=== PATIENT | female | born 1980 | race African-American/Black ===

== ENCOUNTER 2018-04-24 14:15 | Observation (INO) ==
[2018-04-24 15:29] LABS: Apearance,Urine CLEAR (Clear); Bilirubin,Urine Negative (Negative); Blood, Urine Negative (Negative); Glucose,Urine (UA) Negative (Negative); Ketones,Urine Negative (Negative); Mucus,Urine Few /LPF (Occasional); Nitrite,Urine Negative (Negative); Protein,Urine Negative; RBC,Urine <1 /HPF (0-4); Squamous Epithelial Cell,Urine Occasional /HPF (0-10); Urine Color Yellow (Yellow); Urine Specific Gravity 1.018 (1.001-1.035); Urine Urobilinogen < 2.0 EU/DL (0.2-1.0); WBC,Urine <1 /HPF (0-6)
[2018-04-24] MEDS ORDERED: PROMETHAZINE 25 MG/1 ML VIAL IM STA (15:30)
[2018-04-24] MEDS ORDERED: SODIUM CHLORIDE 0.9% 500 ML IV STA (15:30)
[2018-04-24] MEDS ORDERED: HYDROmorphone 2 MG/1 ML VIAL IV ONE (15:40)
[2018-04-24] MEDS ORDERED: PROMETHAZINE 25 MG/1 ML VIAL ONE ×2 (15:55→16:34)
[2018-04-24] MEDS ORDERED: HYDROmorphone 2 MG/1 ML VIAL ONE (15:55)
[2018-04-24 16:19] LABS: Basophils % 0.2 % (0.0-0.8); Eosinophils # 0.1 10*3/uL (0.0-0.87); Hematocrit 38.2 VOL% (35.7-47.0); Hemoglobin 12.4 GM/DL (12.0-16.0); Immature Granulocytes % 0.3 %; Immature Granulocytes Absolute 0.02 #; Lymphocytes # 2.3 10*3/uL (1.4-4.0); Lymphocytes % 39.1 % (21.3-54.2); Mean Corpuscular HGB Conc 32.5 GM/DL (32-36); Mean Corpuscular Hemoglobin 30 PG (27-34); Mean Platelet Volume 9.4 FL (9.6-12.0); Monocytes # 0.4 10*3/uL (0.11-0.8); Neutrophils # 3.1 10*3/uL (1.4-7.4); Neutrophils % 52.4 % (38.7-73.9); Platelet Count 240 T/CUMM (130-400); Red Blood Count 4.15 MC/CUMM (3.8-5.5); Red Cell Distribution Width 12.8 % (9.3-17.3); White Blood Count 5.9 T/CUMM (4-12)
[2018-04-24 16:48] LABS: Lactic Acid 1.5 MMOL/L (0.4-2.0)
[2018-04-24 16:49] LABS: Alanine Aminotransferase 17 U/L (13-56); Albumin 3.3 G/DL (3.4-5.0); Alkaline Phosphatase 73 U/L (45-117); Amylase 142 U/L (25-115); Aspartate Amino Transferase 12 U/L (0-37); Bilirubin,Total < 0.39 MG/DL (0.2-1.0); Blood Urea Nitrogen 11 MG/DL (7-18); Calcium 8.1 MG/DL (8.5-10.1); Glucose 87 MG/DL (74-106); Potassium 3.6 MMOL/L (3.5-5.1); Sodium 143 MMOL/L (136-145); Total Protein 6.8 G/DL (6.4-8.3)
[2018-04-24] MEDS ORDERED: KETOROLAC 30 MG/1 ML VIAL IV STA (19:15)
[2018-04-24] MEDS ORDERED: ACETAMINOPHEN 325 MG TABLET PO PRN (20:17)
[2018-04-24] MEDS: PROMETHAZINE 25 MG/1 ML VIAL IM PRN (20:30)
[2018-04-24] MEDS: KETOROLAC 30 MG/1 ML VIAL IV SCH (20:30)
[2018-04-24] MEDS: SODIUM CHLORIDE 0.9% 1,000 ML IV SCH (21:38)
[2018-04-25] MEDS: KETOROLAC 30 MG/1 ML VIAL IV SCH ×4 (02:39→20:06)
[2018-04-25] MEDS: HYDROmorphone 2 MG/1 ML VIAL IV PRN ×2 (02:57→20:08)
[2018-04-25] MEDS: PROMETHAZINE 25 MG/1 ML VIAL IM PRN ×4 (03:03→20:05)
[2018-04-25 03:53] LABS: Apearance,Urine CLEAR (Clear); Bilirubin,Urine Negative (Negative); Blood, Urine Negative (Negative); Glucose,Urine (UA) Negative (Negative); Ketones,Urine Negative (Negative); Mucus,Urine Few /LPF (Occasional); Nitrite,Urine Negative (Negative); Protein,Urine Negative; RBC,Urine 4 /HPF (0-4); Squamous Epithelial Cell,Urine Occasional /HPF (0-10); Urine Color Yellow (Yellow); Urine Specific Gravity > 1.060 (1.001-1.035); Urine Urobilinogen < 2.0 EU/DL (0.2-1.0); WBC,Urine 2 /HPF (0-6)
[2018-04-25] MEDS: SODIUM CHLORIDE 0.9% 1,000 ML IV SCH (05:49)
[2018-04-25 07:06] LABS: Basophils % 0.1 % (0.0-0.8); Eosinophils # 0.1 10*3/uL (0.0-0.87); Eosinophils % 1.3 % (0.00-10.9); Hematocrit 33.5 VOL% (35.7-47.0); Hemoglobin 11.3 GM/DL (12.0-16.0); Immature Granulocytes % 0.3 %; Immature Granulocytes Absolute 0.02 #; Lymphocytes # 2.5 10*3/uL (1.4-4.0); Lymphocytes % 35.8 % (21.3-54.2); Mean Corpuscular HGB Conc 33.7 GM/DL (32-36); Mean Corpuscular Hemoglobin 31 PG (27-34); Mean Corpuscular Volume 90.3 FL (87-102); Mean Platelet Volume 9.7 FL (9.6-12.0); Monocytes # 0.6 10*3/uL (0.11-0.8); Monocytes % 8.1 % (1.7-12.7); Neutrophils # 3.8 10*3/uL (1.4-7.4); Neutrophils % 54.4 % (38.7-73.9); Platelet Count 237 T/CUMM (130-400); Red Blood Count 3.71 MC/CUMM (3.8-5.5); Red Cell Distribution Width 12.8 % (9.3-17.3); White Blood Count 6.9 T/CUMM (4-12)
[2018-04-25 07:45] LABS: Albumin 2.6 G/DL (3.4-5.0); Bilirubin,Total 0.5 MG/DL (0.2-1.0); Calcium 7.5 MG/DL (8.5-10.1); Potassium 4.3 MMOL/L (3.5-5.1); Total Protein 5.7 G/DL (6.4-8.3)
[2018-04-25] MEDS: ASPIRIN EC 81 MG TABLET PO SCH (08:39)
[2018-04-25] MEDS ORDERED: PANTOPRAZOLE 40 MG VIAL IV SCH (09:00)
[2018-04-26] MEDS: PROMETHAZINE 25 MG/1 ML VIAL IM PRN ×2 (02:46→08:55)
[2018-04-26] MEDS: KETOROLAC 30 MG/1 ML VIAL IV SCH ×2 (02:47→08:54)
[2018-04-26] MEDS: HYDROmorphone 2 MG/1 ML VIAL IV PRN (02:50)
[2018-04-26] MEDS: ASPIRIN EC 81 MG TABLET PO SCH (08:54)
[2018-04-26] MEDS ORDERED: PANTOPRAZOLE 40 MG TABLET PO SCH (09:00)
[2018-04-26] MEDS ORDERED: POLYETHYLENE GLYCOL POWDER 17 GM PACK PO PRN (09:04)
[2018-04-26 11:09] VITALS: BP 108/74
== END 2018-04-26 12:46 | disposition home or self-care (01) ==
LOC: N.ED 14:15 → N.EDINP 14:15 → N.3E 19:10
PROVIDERS: ADMIT Surgery; ATTEND Surgery